=== PATIENT | female | born 2000 | race Caucasian/White ===

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

== ENCOUNTER 2018-07-15 09:02 | Emergency (ER) | payer OTHER ==
[2018-07-15 10:14] LABS: #Basophils 0.1 thou/uL (0.0-0.2); #Eosinphils 0.1 thou/uL (0.0-0.7); #Lymphocytes 1.9 thou/uL (1.20-3.40); #Neutrophils 9.1 thou/uL (1.40-6.50); %Basophils 0.7 % (0.0-1.0); %Eosinophils 0.5 % (0.0-10.0); %Lymphocytes 15.5 % (28.0-48.0); %Monocytes 8.3 % (0.0-4.0); Hemoglobin 13.9 g/dL (12.0-16.0); Mean Corpuscular HGB CONC 32.3 g/dL (32.0-36.0); Mean Corpuscular Hemoglobin 31.4 pg (25.0-35.0); Mean Corpuscular Volume 97.1 fL (78.0-98.0); Mean Platelet Volume 9.8 fL (7.4-10.4); Platelet Count 228 thou/uL (130-400); Red Blood Cell (RBC) Count 4.44 mill/uL (4.00-5.20); White Blood Cell (WBC) Count 12.2 thou/uL (4.8-10.8)
[2018-07-15] MEDS ORDERED: Lorazepam 2 MG/ML VIAL ONE (10:27)
[2018-07-15 10:31] LABS: BHCG - Serum Negative (NEGATIVE); Pregs Control Background? CLEAR/WHITE (CLR/WHITE); Pregs Control Bar Appear? YES (CONTROL BAR)
[2018-07-15 10:36] LABS: ALT (SGPT) 13 U/L (8-55); AST (SGOT) 16 U/L (5-34); Albumin 3.9 g/dL (3.5-5.0); Alkaline Phosphatase 82 U/L (40-150); Anion Gap 11 mmol/L (10-20); BUN (Urea Nitrogen) 11 mg/dL (7.0-18.7); Bilirubin, Total 0.6 mg/dL (0.2-1.2); CRP (Inflammatory) Less than 0.50 mg/dL (= or < 0.5); Calc. Creatinine Clearance 0 mL/min (70-130); Calcium 8.5 mg/dL (7.8-10.44); Carbon Dioxide 23 mmol/L (22-29); Chloride 111 mmol/L (98-107); Estimated GFR-MDRD Greater than 90; Globulin 2.3 g/dL (2.4-3.5); Glucose 93 mg/dL (70-105); Potassium 3.9 mmol/L (3.5-5.1); Protein, Total 6.2 g/dL (6.0-8.3); Sodium 141 mmol/L (136-145)
[2018-07-15] MEDS ORDERED: Ketorolac Tromethamine 30 MG/ML VIAL ONE (10:53)
--- NOTE | 2018-07-15 10:57 | ULT ---
PELVIC ULTRASOUND: Date: 07/15/18 COMPARISON: None. HISTORY: Fever with right lower quadrant pain. TECHNIQUE: Multiplanar Woodward scale sonographic imaging of the pelvis is obtained with transabdominal and endovagi nal imaging. Ovaries are assessed with color flow and spectral analysis. FINDINGS: Uterus measures 6.7 x 3.3 x 3.5 cm and is retroverted. Endometrial thickness is 6.0 mm, within normal limits. No significant free pelvic fluid. No ovarian or adnexal mass lesion noted. Right ovary measu res 3.0 x 2.5 x 2.1 cm and left ovary measures 2.8 x 2.2 x 1.9 cm. Normal blood flow noted within bot h ovaries. IMPRESSION: Unremarkable pelvic ultrasound. If further assessment is clinically warranted, CT examination with IV and oral contrast may be beneficial. POS: [facility]
[2018-07-15 12:37] LABS: Bilirubin Negative (Negative); Blood, Urine Large (Negative); Clarity CLEAR (Clear); Glucose, Urine (Dipstick) Negative (Negative); Leukocyte Trace (Negative); Nitrite Negative (Negative); Protein, Urine (Dipstick) Negative (Neg-Trace); Specific Gravity, Urine 1.018 (1.002-1.036); pH, Urine 7.5 (5.0-9.0)
[2018-07-15 12:39] LABS: Bacteria/HPF None Seen HPF (None Seen); Hyaline Casts/LPF 0-3 HYALINE CAST LPF (0-3 Hyaline); Pathc Cast-AUWi Flag 0.29 (0-2.49); RBC/HPF 21-50 HPF (0-3); Squamous Epithelial 0-3 HPF (0-3); WBC/HPF 0-3 HPF (0-3)
--- NOTE | 2018-07-15 13:42 | CT ---
CT HEAD NONCONTRAST: History: Seizure. Comparison: 03-13-16 FINDINGS: There is no evidence of acute intracranial hemorrhage or infarct. Ventricles appear normal in size, s hape, and position. There is no mass effect or shift of midline structures. Visualized paranasal sinu ses remain well aerated. IMPRESSION: No acute intracranial abnormalities are demonstrated. POS: [facility]
== END 2018-07-15 13:26 | disposition home or self-care (01) ==
LOC: ERS 09:02
DX: R10.2 Pelvic and perineal pain (principal); R56.9 Unspecified convulsions; J45.909 Unspecified asthma, uncomplicated; F17.210 Nicotine dependence, cigarettes, uncomplicated
CPT/HCPCS: 36415; 70450; 76856; 80053; 81003; 81015; 83605; 84146; 84703; 85025; 85652; 86140; 87086; 96361; 96374; 96375; J1885; J2060

== ENCOUNTER 2019-03-15 20:05 | Emergency (ER) | payer OTHER ==
[2019-03-15 21:30] LABS: Pregnancy Test - Urine (BHCG) Negative (Negative)
[2019-03-15 21:31] LABS: Pregu Control Background? CLEAR/WHITE (CLR/WHITE); Pregu Control Bar Appear? YES (CONTROL BAR); Specific Gravity 1.027 (1.002-1.036)
--- NOTE | 2019-03-15 21:47 | RAD ---
Exam: XR Wrist 3 Lt View STANDARD HISTORY: Left wrist pain after falling from a standing position. Left wrist injury. COMPARISON: None FINDINGS: No acute fracture, dislocation, or other acute osseous abnormality is identified. IMPRESSION: No acute osseous abnormality is identified. If there is strong clinical concern for fracture of the n avicular bone, follow-up views of the wrist are recommended in 4-7 days after conservative management.
== END 2019-03-15 22:20 | disposition home or self-care (01) ==
LOC: SCSER 20:05
DX: S63.502A Unspecified sprain of left wrist, initial encounter (principal); S50.12XA Contusion of left forearm, initial encounter; R56.9 Unspecified convulsions; J45.909 Unspecified asthma, uncomplicated; F17.210 Nicotine dependence, cigarettes, uncomplicated; Z79.899 Other long term (current) drug therapy; W18.30XA Fall on same level, unspecified, initial encounter
CPT/HCPCS: 81025

== ENCOUNTER 2019-04-02 15:33 | Emergency (ER) | payer OTHER ==
[2019-04-02 16:16] LABS: Bilirubin Small (Negative); Blood, Urine Negative (Negative); Clarity Cloudy (Clear); Glucose, Urine (Dipstick) Negative (Negative); Leukocyte Negative (Negative); Nitrite Negative (Negative); Protein, Urine (Dipstick) Negative (Neg-Trace)
--- NOTE | 2019-04-02 16:44 | ULT ---
US Pelvic Transvag W Doppler HISTORY: Pelvic pain COMPARISON: None. FINDINGS: Real-time imaging of the pelvis was obtained transvaginally. This shows a uterus measuring 6.1 cm in length. Endometrium is in the 6 to 7 mm range. Small follicles are seen involving the right ovary. Left ovary appears unremarkable. Doppler evaluation with spectral analysis: Normal flow shown to the adnexa. The left ovary position m ixed low difficult to obtain. No free fluid. IMPRESSION: Unremarkable pelvic ultrasound
[2019-04-02 16:57] LABS: BHCG - Serum Negative (NEGATIVE); Pregs Control Background? CLEAR/WHITE (CLR/WHITE); Pregs Control Bar Appear? YES (CONTROL BAR)
[2019-04-02 17:06] LABS: Eosinophils 2 % (0-10); Hemoglobin 14.6 g/dL (12.0-16.0); Lymphocytes 8 % (28-48); MDiff Complete? YES; Mean Corpuscular HGB CONC 33.3 g/dL (32.0-36.0); Mean Corpuscular Hemoglobin 30.8 pg (25.0-35.0); Mean Corpuscular Volume 92.4 fL (78.0-98.0); Mean Platelet Volume 13.5 fL (7.4-10.4); Monocytes 7 % (0-4); Neutrophil 83 % (31-61); Platelet Count 251 thou/uL (130-400); Platelet Morphology Comment Appears Adequate; RBC Distribution Width 11.9 % (11.5-14.5); Red Blood Cell (RBC) Count 4.75 mill/uL (4.00-5.20); Reflex for Review?? NO; Toxic Granulation MODERATE; Vacuoles SLIGHT; White Blood Cell (WBC) Count 24.7 thou/uL (4.8-10.8)
[2019-04-02 17:34] LABS: ALT (SGPT) 16 U/L (8-55); AST (SGOT) 19 U/L (5-34); Albumin 4.6 g/dL (3.5-5.0); Alkaline Phosphatase 100 U/L (40-100); Anion Gap 14 mmol/L (10-20); BUN (Urea Nitrogen) 11 mg/dL (7.0-18.7); Bilirubin, Total 0.8 mg/dL (0.2-1.2); Calc. Creatinine Clearance 0 mL/min (70-130); Calcium 9.7 mg/dL (7.8-10.44); Carbon Dioxide 26 mmol/L (22-29); Chloride 103 mmol/L (98-107); Estimated GFR-MDRD 86; Globulin 2.8 g/dL (2.4-3.5); Glucose 103 mg/dL (70-105); Potassium 3.9 mmol/L (3.5-5.1); Protein, Total 7.4 g/dL (6.0-8.3); Sodium 139 mmol/L (136-145)
--- NOTE | 2019-04-02 17:52 | CT ---
CT ABDOMEN AND PELVIS WITH IV CONTRAST 04/02/2019 CLINICAL INFORMATION: Pelvic pain for a few days. Worse with movement. COMPARISON: 11/17/2017 Technique: Multiple contiguous axial CT images are obtained through the abdomen and pelvis with IV contrast. Cor onal reformatted images are provided. FINDINGS: Lower Chest: within normal limits. Vessels: Abdomen: Portal vein:Patent Gallbladder: Within normal limits for CT imaging. Liver: within normal limits. Spleen: within normal limits. Pancreas: within normal limits. Adrenals: within normal limits. Kidneys: A subtle low-density focus is seen within the superior pole left kidney with cortical irregu larity involving the lateral aspect midportion left kidney which is stable compared to prior study in 2018 and probably due to areas of mild scarring. These areas are also similar when compared to becky or study in 2008. Kidneys otherwise have a normal CT appearance bilaterally. Bowel: Small amount of retained fecal material is seen throughout the colon. Appendix: Not visualized, but there are no secondary signs to suggest appendicitis. Peritoneum: No ascites or free air; no fluid collection. Mesentery and Retroperitoneum: No enlarged mesenteric or retroperitoneal lymph nodes. Abdominal Wall: within normal limits. Pelvis: Reproductive Organs: There are a few subcentimeter hypodense areas within the right ovary with periph eral enhancement which may represent involuting cysts or follicles. The adnexal structures otherwise have a normal CT appearance. Pelvis previously noted fluid collection posterior to the uterus on study in 2018 has resolved. No fl uid collection is seen in the pelvis on today's exam. Bladder: Decompressed but otherwise normal in appearance. Bones: No suspicious lytic or sclerotic osseous lesions are identified. IMPRESSION: No acute findings in the abdomen or pelvis.
[2019-04-02] MEDS ORDERED: Lidocaine 1% MPF 2 ML VIAL ONE (18:09)
[2019-04-02] MEDS ORDERED: cefTRIAXone\\ROCEPHIN 250 MG VIAL ONE (18:09)
[2019-04-02] MEDS ORDERED: Ketorolac Tromethamine 30 MG/ML VIAL ONE (18:09)
[2019-04-05 14:37] LABS: Chlamydia by PCR Not Detected (NotDetected); GC by PCR Not Detected (NotDetected)
== END 2019-04-02 18:52 | disposition home or self-care (01) ==
LOC: SCSER 15:33
DX: R10.30 Lower abdominal pain, unspecified (principal); J45.909 Unspecified asthma, uncomplicated; F17.210 Nicotine dependence, cigarettes, uncomplicated; Z79.899 Other long term (current) drug therapy
CPT/HCPCS: 36415; 74177; 76856; 80053; 81003; 84703; 85025; 87480; 87491; 87510; 87591; 87660; 96361; 96372; 96374; J0696; J1885; J2001

== ENCOUNTER 2021-01-09 09:11 | Observation (INO) | payer BC, OTHER ==
[2021-01-09 11:21] VITALS: BMI 36.3
[2021-01-09] MEDS ORDERED: hydrALAZINE 20 MG/ML VIAL SLOW IVP PRN (11:54)
[2021-01-09] MEDS ORDERED: Acetaminophen 325 MG TAB PO PRN (11:54)
[2021-01-09] MEDS ORDERED: Lorazepam 2 MG/ML VIAL SLOW IVP PRN (11:54)
[2021-01-09] MEDS ORDERED: Nicotine 14 MG PATCH TD SCH (12:00)
[2021-01-09] MEDS: levETIRAcetam 500 MG TAB PO SCH (19:45)
[2021-01-09] MEDS ORDERED: Aspirin/APAP/Caffeine Tab (Excedrin Migraine) PO PRN (20:04)
[2021-01-09 21:19] LABS: SARS-CoV-2 PCR by NAA Not Detected (NotDetected)
[2021-01-10 04:49] LABS: #Eosinphils 0.2 thou/uL (0.0-0.7); #Lymphocytes 2.9 thou/uL (1.20-3.40); #Monocytes 0.7 thou/uL (0.11-0.59); %Basophils 0.5 % (0.0-1.0); %Eosinophils 2.1 % (0.0-10.0); %Lymphocytes 37.3 % (21.0-51.0); %Monocytes 9.1 % (0.0-10.0); Hemoglobin 12.6 g/dL (12.0-16.0); Mean Corpuscular HGB CONC 34.1 g/dL (32.0-36.0); Mean Corpuscular Hemoglobin 31.6 pg (27.0-31.0); Mean Corpuscular Volume 92.6 fL (78.0-98.0); Mean Platelet Volume 10.6 fL (7.4-10.4); Platelet Count 200 thou/uL (130-400); RBC Distribution Width 11.2 % (11.5-14.5); Red Blood Cell (RBC) Count 3.97 mill/uL (4.20-5.40); White Blood Cell (WBC) Count 7.8 thou/uL (4.8-10.8)
[2021-01-10 05:04] LABS: Anion Gap 11 mmol/L (10-20); BUN (Urea Nitrogen) 9 mg/dL (7.0-18.7); Calc. Creatinine Clearance 158 mL/min (70-130); Calcium 8.7 mg/dL (7.8-10.44); Carbon Dioxide 22 mmol/L (22-29); Chloride 111 mmol/L (98-107); Glucose 96 mg/dL (70-105); Potassium 3.6 mmol/L (3.5-5.1); Sodium 140 mmol/L (136-145)
[2021-01-10 08:16] VITALS: BP 115/95; TEMP 97.8
[2021-01-10] MEDS: levETIRAcetam 500 MG TAB PO SCH (08:56)
[2021-01-10] MEDS ORDERED: lamoTRIgine 100 MG TAB PO SCH (21:00)
[2021-01-11] MEDS ORDERED: [UNRECOGNIZED DRUG - OTHER] PO SCH (09:00)
[2021-01-11] MEDS ORDERED: E ESTRADIOL PO SCH ×2 (09:00)
[2021-01-11] MEDS ORDERED: DESOG E ESTRADIOL PO SCH ×2 (09:00)
== END 2021-01-10 10:55 | disposition home or self-care (01) ==
LOC: 2SE 10:51
PROVIDERS: ADMIT Internal Medicine; ATTEND Internal Medicine
DX: G40.919 Epilepsy, unspecified, intractable, without status epilepticus (principal); F17.290 Nicotine dependence, other tobacco product, uncomplicated; Z79.899 Other long term (current) drug therapy; Z20.822 Contact with and (suspected) exposure to COVID-19
CPT/HCPCS: 36415; 80048; 80175; 84146; 85025; 95712; 95819; 95957; G0378; U0003; U0005

== ENCOUNTER 2021-06-09 05:24 | Emergency (ER) | payer BC, OTHER ==
[2021-06-09 06:17] LABS: #Eosinphils 0.1 thou/uL (0.0-0.7); #Lymphocytes 2.8 thou/uL (1.20-3.40); #Monocytes 0.7 thou/uL (0.11-0.59); #Neutrophils 7.3 thou/uL (1.40-6.50); %Basophils 0.4 % (0.0-1.0); %Eosinophils 1.3 % (0.0-10.0); %Lymphocytes 25.4 % (21.0-51.0); %Monocytes 6.5 % (0.0-10.0); %Neutrophils 66.3 % (42.0-75.0); Mean Corpuscular HGB CONC 33.4 g/dL (32.0-36.0); Mean Corpuscular Hemoglobin 30.6 pg (27.0-31.0); Mean Corpuscular Volume 91.7 fL (78.0-98.0); Mean Platelet Volume 9.4 fL (7.4-10.4); Platelet Count 260 thou/uL (130-400); RBC Distribution Width 11.5 % (11.5-14.5); Red Blood Cell (RBC) Count 4.26 mill/uL (4.20-5.40)
[2021-06-09 06:32] LABS: BHCG - Serum Negative (NEGATIVE); Pregs Control Background? CLEAR/WHITE (CLR/WHITE); Pregs Control Bar Appear? YES (CONTROL BAR)
[2021-06-09 06:44] LABS: ALT (SGPT) 17 U/L (8-55); AST (SGOT) 20 U/L (5-34); Acetaminophen Less than 6.0 mcg/mL (10.0-30.0); Alcohol 89 mg/dL (Less than 10); Alkaline Phosphatase 74 U/L (40-110); Anion Gap 15 mmol/L (10-20); BUN (Urea Nitrogen) 10 mg/dL (7.0-18.7); Bilirubin, Total 0.3 mg/dL (0.2-1.2); Calc. Creatinine Clearance 0 mL/min (70-130); Carbon Dioxide 20 mmol/L (22-29); Chloride 110 mmol/L (98-107); Globulin 2.9 g/dL (2.4-3.5); Glucose 95 mg/dL (70-105); Protein, Total 6.9 g/dL (6.0-8.3); Salicylate Less than 8.0 mg/dL (15.0-30.0); Sodium 141 mmol/L (136-145)
== END 2021-06-09 09:10 | disposition home or self-care (01) ==
LOC: ERS 05:24
DX: R56.9 Unspecified convulsions (principal); F17.210 Nicotine dependence, cigarettes, uncomplicated; F17.290 Nicotine dependence, other tobacco product, uncomplicated
CPT/HCPCS: 36415; 70450; 80053; 80307; 84703; 85025